=== PATIENT | female | born 1990 | race Caucasian/White ===

== ENCOUNTER 2021-10-09 18:24 | Emergency (ER) | payer OTHER, SELFPAY ==
[2021-10-09] VITALS (13 sets, daily range): BP systolic 107–131; BP diastolic 64–87; PULSE 100–129; RESP 15–31; TEMP 36.9; O2SAT 96–100
--- NOTE | ~2021-10-09 | XR_ITS ---
XR chest 2V DATE: 10/09/2021 19:06 INDICATION: Sternal chest pain, hematemesis TECHNIQUE: PA and lateral views COMPARISON: None FINDINGS: Normal heart size. No hilar or mediastinal enlargement. No pulmonary infiltrate or consolid ation, pleural effusion or pulmonary vascular congestion or pneumothorax. Included skeletal structures are unremarkable. IMPRESSION: No active cardiopulmonary disease Reviewed, dictated and finalized at location A.
--- NOTE | 2021-10-09 18:30 | ECG_ITS ---
Measurements Intervals [place] Rate: 110 P: 58 ID: [id number] QRS: 32 QRSD: 79 T: 44 QT: 329 QTc: 446 Interpretive Statements SINUS TACHYCARDIA LEFT ATRIAL ENLARGEMENT RIGHT VENTRICULAR CONDUCTION DELAY Electronically Signed On 10-09-2021 18:46:12 CDT by Shalom Dunlap M.D.
[2021-10-09 19:03] LABS: Basophils Absolute Auto 0.1 K/mm3 (0.0-0.1); Basophils Percent Auto 0.3 % (0.2-1.2); Eosinophils Absolute Auto 0.1 K/mm3 (0-0.3); Eosinophils Percent Auto 0.4 % (0-4.4); Hematocrit 42.6 % (37.0-47.0); Hemoglobin 13.4 g/dL (12.0-15.0); Immature Granulocyte Absolute 0.05 K/mm3 (0.00-0.031); Immature Granulocyte Percent A 0.3 % (0-0.5); Lymphocytes Absolute Auto 1.52 K/mm3 (0.9-3.2); Lymphocytes Percent Auto 9.9 % (18.3-44.2); Mean Corpuscular HGB Conc 31.5 g/dl (32-36); Mean Corpuscular Hemoglobin 25.4 pg (26-34); Mean Corpuscular Volume 80.8 fl (80-100); Mean Platelet Volume 9.6 fl (7.4-10.4); Monocytes Absolute Auto 0.9 K/mm3 (0.1-0.6); Neutrophils Absolute Auto 12.7 K/mm3 (1.3-6.7); Neutrophils Percent Auto 83.1 % (45.5-73.1); Platelet Count Result 293 k/mm3 (150-375); Red Blood Count 5.27 M/mm3 (4.2-5.4); Red Cell Distribution Width 14.8 % (11.5-14.5); White Blood Count 15.3 K/mm3 (4.5-10.0)
[2021-10-09 19:13] LABS: Alanine Aminotransferase 14 U/L (4-35); Albumin Level 4.8 g/dL (3.5-5.1); Alkaline Phosphatase 85 U/L (38-126); Anion Gap 9 mmol/L (8-16); Aspartate Amino Transferase 24 U/L (14-36); Bilirubin,Total 0.6 mg/dL (0.2-1.3); Blood Urea Nitrogen 13 mg/dL (7-17); Carbon Dioxide 26 mmol/L (22-30); Chloride 103 mmol/L (98-107); Estimated CRCL calculation 77 ml/min; Estimated Glomerular Filt Rate > 60; Glucose 157 mg/dL (65-110); INR 1.1; Lipase 75 U/L (23-300); Partial Thromboplastin Time 25.2 SECONDS (22.3-36.8); Potassium 3.9 mmol/L (3.4-5.0); Prothrombin Time 13.3 Seconds (11.1-14.7); Sodium 138 mmol/L (137-145)
--- NOTE | 2021-10-09 19:22 | ED.CHESTPAIN ---
HPI - Chest Pain General Chief Complaint: Chest Pain Stated Complaint: cp, vomiting blood Time Seen by Provider: 10/09/21 18:26 Source: patient and RN notes reviewed History of Present Illness HPI narrative: 31-year-old female with no significant past medical history presenting to the emergency department for evaluation of nausea vomiting and diarrhea that started approximately 3:00 today. Patient states that she had onset of nausea and vomiting and then did have some subsequent substernal chest pain. Patient states that she did have some red-tinged emesis. Patient denies passing any significant clots. Patient is not on any blood thinners. Patient denies any prior history of GI bleed. Patient denies any recent heavy alcohol consumption. Patient states she does not take any NSAIDs. Patient states that she also had significant diarrhea today. Patient denies any abdominal pain. Related Data Allergies Allergy/AdvReac Type Severity Reaction Status Date / Time No Known Allergies Allergy Verified 10/09/21 18:52 Review of Systems Review of Systems: CONSTITUTIONAL: Denies fever, chills, or sweats. EYES: Denies visual changes, redness, or discharge. ENT: Denies rhinorrhea, congestion, sore throat, or otalgia. CARDIOVASCULAR: Epigastric chest pain RESPIRATORY: Denies cough or dyspnea. GASTROINTESTINAL: Denies abdominal pain. Does report nausea vomiting and diarrhea GENITOURINARY: Denies dysuria or hematuria. SKIN: Denies rash or itching. MUSCULOSKELETAL: Denies back pain, joint pain, or myalgia. NEUROLOGIC: Denies headache, numbness, or weakness. Exam Narrative: APPEARANCE: Well appearing, no pain, no distress, well-nourished. HEAD: normocephalic, atraumatic. EYES: PERRLA/EOMI, conjunctivae clear. NOSE: Normal no drainage NECK: Supple. No adenopathy, no masses. RESPIRATORY: Airway patent, respirations nonlabored. Clear to auscultation bilaterally, no rales, rhonchi, wheezing. CARDIOVASCULAR: Regular rate and rhythm without murmurs rubs or gallops. ABDOMINAL: Soft, nontender, nondistended, normal bowel sounds MUSCULOSKELETAL: Moves all extremities. Strength/ROM intact, No edema, No calf tenderness. NEURO: Alert. Cranial nerves II through XII intact. Grossly intact SKIN: Warm, dry. Normal Color Course Course Emergency Course: Hemoccult was negative. Patient is tolerating p.o. Patient does feel improved with treatment. Heart score of 1. Recommendations patient can be discharged to home with outpatient follow-up. Low likelihood of coronary artery disease as underlying etiology. EKG showed sinus tachycardia. Patient's tachycardia was improved over the course of her stay. Patient was provided Zofran for nausea control and recommended to start taking omeprazole. Patient was comfortable with the plan for discharge and close follow-up. Vital Signs Vital signs: Vital Signs Temperature 98.4 F 10/09/21 18:43 Pulse Rate 112 H 10/09/21 18:43 Respiratory Rate 20 10/09/21 18:43 Blood Pressure 121/70 10/09/21 18:43 Pulse Oximetry 99 10/09/21 18:43 Temperature 98.4 F 10/09/21 18:43 Pulse Rate 100 10/09/21 23:38 Respiratory Rate 16 10/09/21 23:38 Blood Pressure 117/82 10/09/21 23:38 Pulse Oximetry 100 10/09/21 23:38 MDM - Chest Pain Differential Diagnosis Differential diagnosis: Likely chest pain Lab Data Attestation: I reviewed the patient's lab results. Result diagrams: 10/09/21 18:53 10/09/21 18:54 Labs: Lab Results 10/09/21 10/09/21 10/09/21 Range/Units 18:53 18:54 18:54 WBC 15.3 H (4.5-10.0) K/mm3 RBC 5.27 (4.2-5.4) M/mm3 Hgb 13.4 (12.0-15.0) g/dL Hct 42.6 (37.0-47.0) % MCV 80.8 (80-100) fl MCH 25.4 L (26-34) pg MCHC 31.5 L (32-36) g/dl RDW 14.8 H (11.5-14.5) % Plt Count 293 (150-375) k/mm3 MPV 9.6 (7.4-10.4) fl Immature Gran % (Auto) 0.3 (0-0.5) % Neut % (Auto) 83.1 H (45.5-73.1) % Lymph
[2021-10-09 19:24] LABS: Troponin I < 0.012 ng/mL (0.000-0.034)
[2021-10-09] MEDS: PANTOPRAZOLE SODIUM IV 40 MG VIAL IV PUSH (19:32)
[2021-10-09] MEDS: SODIUM CHLORIDE 0.9% IV 1,000 ML 999 ML IV CONT ×2 (19:41→20:46)
[2021-10-09] MEDS: ONDANSETRON INJ 4 MG/2 ML VIAL IV PUSH (19:41)
[2021-10-09 22:55] LABS: Troponin I < 0.012 ng/mL (0.000-0.034)
== END 2021-10-09 23:44 | disposition home or self-care (01) ==
PROVIDERS: Emergency Medicine; Emergency Provider Emergency Medicine
DX: R11.2 Nausea with vomiting, unspecified (principal); R07.9 Chest pain, unspecified
CPT/HCPCS: 36415; 71046; 80053; 83690; 84484; 85025; 85610; 85730; 93005; 96361; 96374; 96375; 99284; C9113; J2405; J7030